=== PATIENT | female | born 1965 | race Caucasian/White ===

== ENCOUNTER 2017-01-25 15:13 | Emergency (ER) | payer BC, OTHER ==
[~2017-01-25 15:13] MED LIST: ALPRAZOLAM PO; CENTRUM PO; CIPRO PO; DICLOFENAC PO; ESTRACE PO; KCL PO; LORTAB PO; MAXZIDE 75/50 T1 TAB PO; ZANTAC PO; [UNRECOGNIZED DRUG - REMARK]
== END 2017-01-25 16:01 | disposition home or self-care (01) ==
LOC: SED 15:13
DX: S81.811A Laceration without foreign body, right lower leg, initial encounter (principal); W45.8XXA Other foreign body or object entering through skin, initial encounter; Y92.002 Bathroom of unspecified non-institutional (private) residence as the place of occurrence of the external cause; I10 Essential (primary) hypertension; K21.9 Gastro-esophageal reflux disease without esophagitis
CPT/HCPCS: 12001; 99283